=== PATIENT | female | born 1945 | race Asian ===

== ENCOUNTER 2020-02-27 19:01 | Observation (INO) | payer OTHER ==
[~2020-02-27] VITALS: Ht 152.4 cm; Wt 70.8 kg
[2020-02-27 19:09] VITALS: Ht 152.4 cm; Wt 70.8 kg
[2020-02-27] MEDS ORDERED: XARELTO15 M1 PO (19:23)
[2020-02-27] MEDS ORDERED: AROMASIN25 MG PO (19:24)
[2020-02-27] MEDS ORDERED: HYZAAR1 TA2 PO (19:25)
[2020-02-27] MEDS ORDERED: TENORMIN50 MG PO (19:25)
[2020-02-27 19:35] LABS: BASOPHIL % 0.4 % (0-2); PLATELET COUNT 142 x10^3mcL (130-400); RED CELL DISTRIBUTION WIDTH 13.7 % (11.5-14.5)
[2020-02-27 19:55] LABS: ALBUMIN 3.6 g/dL (3.4-5.0); ALKALINE PHOSPHATASE 96 U/L (46-116); ALT/SGPT 40 U/L (14-59); AST/SGOT 43 U/L (15-37); CALCIUM 9.4 mg/dL (8.5-10.1); CARBON DIOXIDE 30.2 mmol/L (21-32); CHLORIDE SERUM 100 mmol/L (98-107); CREATININE SERUM 0.8 mg/dL (0.6-1.0); GLUCOSE SERUM 163 mg/dL (74-106); SODIUM SERUM 139 mmol/L (136-145); TOTAL PROTEIN, SERUM 7.6 g/dL (6.4-8.2)
[2020-02-27 19:58] LABS: POTASSIUM SERUM 2.9 mmol/L (3.5-5.1)
[2020-02-27 22:25] VITALS: BP 190/124
[2020-02-28 05:36] VITALS: BP 141/79
[2020-02-28 08:00] LABS: CALCIUM 8.9 mg/dL (8.5-10.1); CARBON DIOXIDE 32.2 mmol/L (21-32); CHLORIDE SERUM 102 mmol/L (98-107); CREATININE SERUM 0.9 mg/dL (0.6-1.0); GLUCOSE SERUM 92 mg/dL (74-106); POTASSIUM SERUM 3.5 mmol/L (3.5-5.1); SODIUM SERUM 141 mmol/L (136-145)
[2020-02-28 08:12] VITALS: BP 162/99
[2020-02-28 08:19] LABS: BASOPHIL % 0.3 % (0-2); PLATELET COUNT 146 x10^3mcL (130-400); RED CELL DISTRIBUTION WIDTH 13.5 % (11.5-14.5)
[2020-02-28] MEDS ORDERED: TEN50 PO (11:38)
[2020-02-28 12:33] VITALS: BP 171/109
[2020-02-28 13:47] VITALS: BP 162/99
== END 2020-02-28 17:00 | disposition home or self-care (01) ==
LOC: ED 19:01 → DU 20:16
PROVIDERS: Emergency Medicine; ADMIT Hospitalist; ATTEND Hospitalist
DX: R07.89 Other chest pain (principal); I16.0 Hypertensive urgency; I10 Essential (primary) hypertension; I48.91 Unspecified atrial fibrillation; E87.6 Hypokalemia; Z20.828 Contact with and (suspected) exposure to other viral communicable diseases
CPT/HCPCS: 83880; 85378; G0378; J3475; J3480; J7050; Q0092